=== PATIENT | female | born 1930 ===

== ENCOUNTER 2019-06-20 12:07 | Emergency (ER) | payer OTHER ==
[~2019-06-20] VITALS: Ht 144.8 cm; Wt 51.7 kg
[2019-06-20] MEDS ORDERED: ZOCOR20 MG (12:54)
[2019-06-20] MEDS ORDERED: LEVOTHYROXINE25 MCG (12:55)
[2019-06-20] MEDS ORDERED: NORVASC2.5 M1 (12:56)
[2019-06-20] MEDS ORDERED: XANAX0.25 MG (12:58)
== END 2019-06-21 17:47 | disposition home or self-care (01) ==
LOC: ER 12:07
DX: R55 Syncope and collapse (principal); L03.115 Cellulitis of right lower limb; G89.11 Acute pain due to trauma